=== PATIENT | male | born 2000 | race Caucasian/White ===

== ENCOUNTER 2021-05-13 12:27 | Emergency (ER) | payer OTHER, SELFPAY ==
[2021-05-13 12:40] VITALS: BP 130/79; PULSE 82; RESP 16; TEMP 36.9; O2SAT 100
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
[2021-05-13] MEDS: SILVER SULFADIAZINE 1% CR 50 GM JAR (*BKC) 1 APPLIC TOPICAL (13:33)
== END 2021-05-13 13:30 | disposition home or self-care (01) ==
PROVIDERS: Emergency Provider Nurse Practitioner Family
DX: T23.361A Burn of third degree of back of right hand, initial encounter (principal); T31.11 Burns involving 10-19% of body surface with 10-19% third degree burns; X08.8XXA Exposure to other specified smoke, fire and flames, initial encounter
CPT/HCPCS: 16025; 99213; A9270; G0463

== ENCOUNTER 2023-05-29 14:55 | Emergency (ER) | payer OTHER, SELFPAY ==
[2023-05-29 15:03] VITALS: BP 123/80; PULSE 83; RESP 16; TEMP 36.7; O2SAT 98
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
[2023-05-29] MEDS: EPINEPHrine HCL INJ 1 MG/ML AMPUL 0.3 MG IM (15:17)
[2023-05-29 15:45] VITALS: PULSE 78; RESP 18; O2SAT 99
[2023-05-29 16:00] VITALS: BP 118/70; PULSE 83; RESP 18; O2SAT 99
== END 2023-05-29 16:00 | disposition home or self-care (01) ==
PROVIDERS: Emergency Provider Registered Nurse
DX: T63.451A Toxic effect of venom of hornets, accidental (unintentional), initial encounter (principal)
CPT/HCPCS: 96372; 99213; G0463; J0171